=== PATIENT | female | born 1995 | race Caucasian/White ===

== ENCOUNTER 2017-07-31 06:46 | Day surgery (SDC) | payer BC ==
[~2017-07-31 06:46] MED LIST: Lactated Ringers 1,000 ML IV SCH
[2017-07-31] MEDS ORDERED: HYDROmorphone 2 MG/ML SDV IV PRN (07:26)
[2017-07-31] MEDS ORDERED: Albuterol 0.083% 2.5 MG/3 ML Neb Soln NEB PRN (07:26)
[2017-07-31] MEDS ORDERED: fentaNYL 100 MCG/2 ML SDV IVPUSH PRN (07:26)
[2017-07-31] MEDS ORDERED: Promethazine 25 MG/ML SDV IM PRN (07:26)
[2017-07-31] MEDS ORDERED: HYDROmorphone 2 MG/ML SDV IVPUSH PRN (07:26)
[2017-07-31] MEDS ORDERED: Ondansetron 4 MG/2 ML SDV IVPUSH PRN (07:26)
[2017-07-31] MEDS ORDERED: Naloxone 0.4 MG/ML SDV IVPUSH PRN (07:26)
[2017-07-31] MEDS ORDERED: Lactated Ringers 1,000 ML IV SCH (07:30)
[2017-07-31] MEDS ORDERED: Ondansetron 4 MG/2 ML SDV IVPUSH ONE (08:00)
[2017-07-31] MEDS ORDERED: Lidocaine 2% 100 MG/5 ML Syringe IVPUSH ONE (08:00)
[2017-07-31] MEDS ORDERED: fentaNYL 100 MCG/2 ML SDV IV ONE (08:00)
[2017-07-31] MEDS ORDERED: Midazolam 1 MG/ML 2 ML SDV IV ONE (08:00)
[2017-07-31] MEDS ORDERED: HYDROmorphone 2 MG/ML SDV IV ONE (08:00)
[2017-07-31] MEDS ORDERED: Succinylcholine/Normal Saline 100 MG/5 ML Syringe IV ONE (08:00)
[2017-07-31] MEDS ORDERED: Dexamethasone 4 MG/ML 5 ML MDV IVPUSH ONE (08:00)
[2017-07-31] MEDS ORDERED: Propofol 200 MG/20 ML SDV IV ONE (08:00)
[2017-07-31] MEDS ORDERED: Rocuronium 100 MG/10 ML MDV IV ONE (08:00)
--- NOTE | 2017-07-31 08:14 | PCM.HP ---
H&P History of Present Illness - General Date of Service: 07/31/17 Admit Problem/Dx: Admission Diagnosis/Problem Admission Diagnosis/Problem Tonsillitis Source of Information: Patient History Limitations: Reports: No Limitations - History of Present Illness Initial Comments - Free Text/Narative: Here for tonsillectomy for chronic tonsillitis - Related Data Allergies/Adverse Reactions: Allergies Allergy/AdvReac Type Severity Reaction Status Date / Time No Known Allergies Allergy Verified 03/08/14 11:42 Home Medications: Home Meds Norgestimate-Ethinyl Estradiol [[place]-Linyah 28 Tablet] 1 tab PO DAILY 07/31/17 [ History] Past Medical History - Past Health History Medical/Surgical History: Denies Medical/Surgical History HEENT History: Reports: None Cardiovascular History: Reports: None Respiratory History: Reports: None Gastrointestinal History: Reports: None Genitourinary History: Reports: None [employer] History: Reports: None Musculoskeletal History: Reports: None Neurological History: Reports: None Psychiatric History: Reports: None Endocrine/Metabolic History: Reports: None Hematologic History: Reports: None Immunologic History: Reports: None Oncologic (Cancer) History: Reports: None Dermatologic History: Reports: None - Past Surgical History Head Surgeries/Procedures: Reports: None HEENT Surgical History: Reports: None Cardiovascular Surgical History: Reports: None Respiratory Surgical History: Reports: None GI Surgical History: Reports: Appendectomy Female Surgical History: Reports: None Endocrine Surgical History: Reports: None Neurological Surgical History: Reports: Scoliosis, Other (See Below) Other Neurological Surgeries/Procedures: SPINAL SURGERY TO CORRECT SCOLIOSIS Musculoskeletal Surgical History: Reports: None Oncologic Surgical History: Reports: None Dermatological Surgical History: Reports: None Social & Family History - Tobacco Use Smoking Status *Q: Never Smoker - Caffeine Use Caffeine Use: Reports: None - Alcohol Use Days Per Week of Alcohol Use: 0 - Recreational Drug Use Recreational Drug Use: No Drug Use in Last 12 Months: No H&P Review of Systems - Review of Systems: Review Of Systems: ROS reveals no pertinent complaints other than HPI. Exam - Exam Exam: See Below - Vital Signs Vital Signs: Last Vital Signs Temp 97.3 F 07/31/17 07:10 Pulse 75 07/31/17 07:10 Resp 16 07/31/17 07:10 BP 123/72 07/31/17 07:10 Pulse Ox 100 07/31/17 07:10 Weight: 79.1 kg - Exam General: Alert, Oriented Lungs: Clear to Auscultation, Normal Respiratory Effort Cardiovascular: Regular Rate, Regular Rhythm - Patient Data Lab Results Last 24 hrs: Laboratory Results - last 24 hr 07/31/17 Range/Units 07:15 Urine HCG, Qual Negative (NEGATIVE) *Q Meaningful Use (ADM) - VTE *Q VTE Criteria *Q: - Stroke *Q Stroke Criteria *Q: - AMI *Q AMI Criteria *Q: Problem List Initiated/Reviewed/Updated: Yes Orders Last 24hrs: Active Orders 24 hr Category Date Time Status Patient Status [ADT] Routine ADT 07/31/17 06:45 Ordered Communication Order [RC] ASDIRECTED Care 07/31/17 07:26 Active Cooling Warming Measures [RC] ASDIRECTED Care 07/31/17 07:26 Active Notify Provider [RC] PRN Care 07/31/17 07:26 Active Oxygen Therapy [RC] ASDIRECTED Care 07/31/17 07:26 Active Patient to Empty Bladder [RC] ASDIRECTED Care 07/31/17 06:45 Active Verify Patient Consent Obtain [RC] ASDIRECTED Care 07/31/17 06:45 Active Vital Signs [RC] PER UNIT ROUTINE Care 07/31/17 07:26 Active Nothing Per Oral Diet [DIET] Diet 07/30/17 Dinner Ordered Albuterol [Proventil Neb Soln] Med 07/31/17 07:26 Active 2.5 mg NEB ONETIME PRN HYDROmorphone [Dilaudid] Med 07/31/17 07:26 Active 0.2 mg IVPUSH Q10M PRN HYDROmorphone [Dilaudid] Med 07/31/17 07:26 Active 0.5 mg IV Q10M PRN Lactated Ringers [Ringers, Lactated] 1,000 ml Med 07/31/17 06:45 Active IV ASDIRECTED Lactated Ringers [Ringers, Lactated] 1,000 ml Med 07/31/17 07:30 Active IV ASDIRECTED Naloxone [Narcan] Med 07/31/17 07:26 Active 0.2 mg IVPUSH Q1M PRN Ondansetron [Zofran] Med 07/31/17 07:26 Active 4 mg IVPUSH ONETIME PRN Promethazine [Phenergan] Med 07/31/17 07:26 Active 12.5 mg IM Q4H PRN fentaNYL [Sublimaze] Med 07/31/17 07:26 Active 50 mcg IVPUSH Q5M PRN Patient May [OM.PC] Click to Edit Oth 07/31/17 07:26 Ordered Peripheral IV Insertion Adult [OM.PC] Routine Oth 07/31/17 06:45 Ordered Medication Orders Albuterol (Proventil Neb Soln) 2.5 mg NEB ONETIME PRN PRN Reason: Wheezing Fentanyl (Sublimaze) 50 mcg IVPUSH Q5M PRN PRN Reason: Pain (severe 7-10) Hydromorphone HCl (Dilaudid) 0.2 mg IVPUSH Q10M PRN PRN Reason: Pain (moderate 4-6) Hydromorphone HCl (Dilaudid) 0.5 mg IV Q10M PRN PRN Reason: Pain (severe 7-10) Lactated Ringer's (Ringers, Lactated) 1,000 mls @ 125 mls/hr IV ASDIRECTED [facility] Last Admin: 07/31/17 07:31 Dose: 125 mls/hr Lactated Ringer's (Ringers, Lactated) 1,000 mls @ 0 mls/hr IV ASDIRECTED KIAN PRN Reason: KVO Naloxone HCl (Narcan) 0.2 mg IVPUSH Q1M PRN PRN Reason: Respiratory Depression Ondansetron HCl (Zofran) 4 mg IVPUSH ONETIME PRN PRN Reason: Nausea/Vomiting Promethazine HCl (Phenergan) 12.5 mg IM Q4H PRN PRN Reason: Nausea/Vomiting Assessment/Plan Comment:: Chronic Tonsillitis Ok to proceed with surgery
--- NOTE | 2017-07-31 08:34 | PCM.OPNOTE ---
- General Post-Op/Procedure Note Date of Surgery/Procedure: 07/31/17 Operative Procedure(s): Tonsillectomy Findings: Chronic Tonsillitis Pre Op Diagnosis: Chronic Tonsillitis Post-Op Diagnosis: Same Anesthesia Technique: General ET Tube Primary Surgeon: Rashel Arrieta Anesthesia Provider: Luis Alfaro Pathology: Tonsils EBL in mLs: 1 Condition: Good
[2017-07-31] MEDS ORDERED: Morphine 2 MG/ML Syringe IVPUSH PRN (08:36)
[2017-07-31] MEDS ORDERED: Acetaminophen/HYDROcodone 325-5 MG Tab PO PRN (08:36)
[2017-07-31 10:23] VITALS: BP 119/51
--- NOTE | 2017-07-31 12:32 | OR ---
DATE OF OPERATION: 07/31/2017 SURGEON: Rashel Arrieta MD PREOPERATIVE DIAGNOSIS: Chronic tonsillitis. POSTOPERATIVE DIAGNOSIS: Chronic tonsillitis. PROCEDURE: Tonsillectomy. ANESTHESIA: General. DESCRIPTION OF PROCEDURE: The patient was brought to the operating room, where general endotracheal anesthesia was administered. The oral gag retractor was inserted. Tonsils were both enlarged and cryptic without acute inflammation. The right tonsil was grasped and retracted towards the midline. Electrocautery was used to dissect along its muscular plane and removed without difficulty. Minimal oozing was controlled with cautery. The left tonsil was removed in a similar fashion without difficulty. Again, only minimal oozing occurred. The nasopharynx was inspected with a dental mirror and no visible adenoid tissue was present. Retractor was partially released and surgical sites observed for a minute and remained hemostatic, and retractor was then removed. The patient was extubated and returned to recovery in stable condition. ESTIMATED BLOOD LOSS: Less than 1 mL. /[id number] CALIN/LUCIANO
== END 2017-07-31 10:14 | disposition home or self-care (01) ==
LOC: FB.SDS 06:46
PROVIDERS: ATTEND Surgery
DX: J35.1 Hypertrophy of tonsils (principal); Z79.899 Other long term (current) drug therapy
CPT/HCPCS: 42826; 81025; 88304; A9270; J0330; J1100; J1170; J2250; J2405; J2704; J3010; J7120

== ENCOUNTER 2017-08-06 05:20 | Day surgery (SDC) | payer BC ==
--- NOTE | 2017-08-06 05:49 | EDM.PDOC ---
ED HPI GENERAL MEDICAL PROBLEM - General Stated Complaint: SORE THROAT Time Seen by Provider: 08/06/17 05:20 Source of Information: Reports: Patient History Limitations: Reports: No Limitations - History of Present Illness INITIAL COMMENTS - FREE TEXT/NARRATIVE: 21 y.o.w.f came to the ed 7 days (07/31/2017) after tonsillectomy due to spitting up blood intermittently. Pt was taking pain meds, using ICE Chips. Bleeding has not stopped, no N/V/D or dizziness. BP 107/71 pulse 101 temp 37.2 RR 17 Pulse ox 96% on RA Onset: Today Onset Date: 08/05/17 Onset Time: 18:00 Duration: Hour(s):, Intermittent Location: Reports: Face Quality: Reports: Ache, Burning, Other (s/p tonsilectomy bleed) Severity: Mild Improves with: Reports: Cold Therapy Worsens with: Reports: Movement Context: Reports: Other (s/p tonsilectmy) Associated Symptoms: Reports: No Other Symptoms - Related Data Allergies Allergy/AdvReac Type Severity Reaction Status Date / Time No Known Allergies Allergy Verified 08/06/17 06:58 Home Meds: Home Meds Norgestimate-Ethinyl Estradiol [[place]-Linyah 28 Tablet] 1 tab PO DAILY 07/31/17 [ History] Hydrocodone/Acetaminophen [Hydrocodon-Acetaminophen 5-325] 1 tab PO Q4H PRN [History] Past Medical History - Past Health History Medical/Surgical History: Denies Medical/Surgical History HEENT History: Reports: None Cardiovascular History: Reports: None Respiratory History: Reports: None Gastrointestinal History: Reports: None Genitourinary History: Reports: None INFORMATION ASSURANCE History: Reports: None Musculoskeletal History: Reports: None Neurological History: Reports: None Psychiatric History: Reports: None Endocrine/Metabolic History: Reports: None Hematologic History: Reports: None Immunologic History: Reports: None Oncologic (Cancer) History: Reports: None Dermatologic History: Reports: None - Past Surgical History Head Surgeries/Procedures: Reports: None HEENT Surgical History: Reports: None Cardiovascular Surgical History: Reports: None Respiratory Surgical History: Reports: None GI Surgical History: Reports: Appendectomy Female Surgical History: Reports: None Endocrine Surgical History: Reports: None Neurological Surgical History: Reports: Scoliosis, Other (See Below) Other Neurological Surgeries/Procedures: SPINAL SURGERY TO CORRECT SCOLIOSIS Musculoskeletal Surgical History: Reports: None Oncologic Surgical History: Reports: None Dermatological Surgical History: Reports: None Social & Family History - Tobacco Use Smoking Status *Q: Never Smoker - Caffeine Use Caffeine Use: Reports: None - Alcohol Use Days Per Week of Alcohol Use: 0 - Recreational Drug Use Recreational Drug Use: No Drug Use in Last 12 Months: No ED ROS ENT - Review of Systems Review Of Systems: See Below Constitutional: Reports: No Symptoms HEENT: Reports: Throat Pain, Other (bleeding from the tonsilectomy wound) Respiratory: Reports: No Symptoms Cardiovascular: Reports: No Symptoms Endocrine: Reports: No Symptoms GI/Abdominal: Reports: No Symptoms : Reports: No Symptoms Musculoskeletal: Reports: No Symptoms Skin: Reports: No Symptoms Neurological: Reports: No Symptoms Psychiatric: Reports: No Symptoms Hematologic/Lymphatic: Reports: No Symptoms Immunologic: Reports: No Symptoms ED EXAM, ENT - Physical Exam Exam: See Below Exam Limited By: No Limitations General Appearance: Alert, WD/WN, Mild Distress Eye Exam: Bilateral Eye: Normal Inspection Ears: Normal External Exam Nose: Normal Inspection, Normal Mucousa Mouth/Throat: Other (surgical wound bleed S/P tonsilectomy 07/21/2017) Head: Atraumatic, Normocephalic Neck: Normal Inspection, Supple, Non-Tender Respiratory/Chest: No Respiratory Distress, Lungs Clear, Normal Breath Sounds Cardiovascular: Normal Peripheral Pulses, Regular Rate, Rhythm, No Edema GI/Abdominal: Normal Bowel Sounds, Soft, Non-Tender, No Organomegaly (Female) Exam: Deferred Rectal (Female) Exam: Deferred Back: Normal Inspection, Full Range of Motion Extremities: Normal Inspection, Normal Range of Motion, Non-Tender, No Pedal Edema Neurological: Alert, Oriented, CN II-XII Intact, Normal Cognition, Normal Gait Psychiatric: Normal Affect, Normal Mood Skin: Warm, Dry, Intact, Normal Color, No Rash Lymphatic: No Adenopathy Course - Vital Signs Text/Narrative:: 21 y.o.w.f came to the ed 7 days (08/01/2017)after tonsillectomy due to spitting up blood intermittently. Pt was taking pain meds, using ICE Chips. Bleeding has not stopped, no N/V/D or dizziness. BP 107/71 pulse 101 temp 37.2 RR 17 Pulse ox 96% on RA PE: HEENT: Blood clot formed at the surgical wound (left) S/P tonsillectomy with intermittent venous bleed Labs: WBC 11.5 HGB 11.7 HCT 44.3 Na 133 K 3.8 GFR > 60 Impression: S/P tonsillectomy surgical wound bleed. 5.46 am Consultation: Dr. Arrieta, Surgeon: Give pt ice chips and keep here here in the ED for a couple of hours, call back 7.13 am: Dr. Arrieta called back: Is planning to take the Pt back to the OR at 8 am , nurse should call the OR team.8 am 8 AM: Dr. Arrieta, Surgeon, took over the care Last Recorded V/S: Last Vital Signs Temp 36.5 C 08/06/17 10:30 Pulse 77 08/06/17 10:30 Resp 18 08/06/17 10:30 BP 119/64 08/06/17 10:30 Pulse Ox 96 08/06/17 10:30 - Orders/Labs/Meds Orders: Active Orders 24 hr Category Date Time Status Ready for Discharge [RC] PER UNIT ROUTINE Care 08/06/17 08:52 Active Sodium Chloride 0.9% [Normal Saline] 1,000 ml Med 08/06/17 09:56 Active IV ASDIRECTED Medication Orders Sodium Chloride (Normal Saline) 1,000 mls @ 500 mls/hr IV ASDIRECTED KIAN Stop: 08/06/17 11:55 Last Admin: 08/06/17 10:06 Dose: Labs: Laboratory Tests 08/06/17 08/06/17 08/06/17 Range/Units 06:15 06:15 06:15 WBC 11.5 (4.5-12.0) X10-3/uL RBC 5.27 H (3.23-5.20) x10(6)uL Hgb 15.1 (11.5-15.5) g/dL Hct 44.0 (30.0-51.3) % MCV 83.5 (80-96) fL MCH 28.7 (27.7-33.6) pg MCHC 34.4 (32.2-35.4) g/dL RDW 12.6 (11.5-15.5) % Plt Count 293 (125-369) X10(3)uL MPV 8.4 (7.4-10.4) fL Neut % (Auto) 83.6 H (46-82) % Lymph % (Auto) 9.5 L (13-37) % Divide % (Auto) 6.2 (4-12) % Eos % (Auto) 1 (1.0-5.0) % Baso % (Auto) 0 (0-2) % Neut # (Auto) 9.6 H (1.6-8.3) # Lymph # (Auto) 1.1 (0.6-5.0) # Divide # (Auto) 0.7 (0.0-1.3) # Eos # (Auto) 0.1 (0.0-0.8) # Baso # (Auto) 0.0 (0.0-0.2) # PT 12.3 H (8.7-11.1) INR 1.22 H (0.89-1.13) Sodium 133 L (135-145) mmol/L Potassium 3.8 (3.5-5.3) mmol/L Chloride 96 L (100-110) mmol/L Carbon Dioxide 24 (21-32) mmol/L BUN 14 (7-18) mg/dL Creatinine 0.7 (0.55-1.02) mg/dL Est Cr Clr Drug Dosing 121.01 mL/min Estimated GFR (MDRD) > 60 (>60) BUN/Creatinine Ratio 20.0 (9-20) Glucose 116 (80-116) mg/dL Calcium 9.4 (8.2-10.1) mg/dL HCG, Quant (<5) mIU/mL 08/06/ Range/Units 06:15 WBC (4.5-12.0) X10-3/uL RBC (3.23-5.20) x10(6)uL Hgb (11.5-15.5) g/dL Hct (30.0-51.3) % MCV (80-96) fL MCH (27.7-33.6) pg MCHC (32.2-35.4) g/dL RDW (11.5-15.5) % Plt Count (125-369) X10(3)uL MPV (7.4-10.4) fL Neut % (Auto) (46-82) % Lymph % (Auto) (13-37) % Divide % (Auto) (4-12) % Eos % (Auto) (1.0-5.0) % Baso % (Auto) (0-2) % Neut # (Auto) (1.6-8.3) # Lymph # (Auto) (0.6-5.0) # Divide # (Auto) (0.0-1.3) # Eos # (Auto) (0.0-0.8) # Baso # (Auto) (0.0-0.2) # PT (8.7-11.1) INR (0.89-1.13) Sodium (135-145) mmol/L Potassium (3.5-5.3) mmol/L Chloride (100-110) mmol/L Carbon Dioxide (21-32) mmol/L BUN (7-18) mg/dL Creatinine (0.55-1.02) mg/dL Est Cr Clr Drug Dosing mL/min Estimated GFR (MDRD) (>60) BUN/Creatinine Ratio (9-20) Glucose (80-116) mg/dL Calcium (8.2-10.1) mg/dL HCG, Quant < 1 L (<5) mIU/mL Meds: Medications Generic Name Dose Route Start Last Admin Trade Name Freq PRN Reason Stop Dose Admin Sodium Chloride 1,000 mls @ 500 mls/hr 08/06/17 09:56 08/06/17 10:06 Normal Saline IV 08/06/17 11:55 Not Given ASDIRECTED KIAN Discontinued Medications Generic Name Dose Route Start Last Admin Trade Name Freq PRN Reason Stop Dose Admin Sodium Chloride 1,000 mls @ 999 mls/hr 08/06/17 06:27 08/06/17 06:41 Normal Saline IV 08/06/17 07:27 125 mls/hr .BOLUS ONE Infusion Sodium Chloride 1,000 mls @ 125 mls/hr 08/06/17 06:45 Normal Saline IV ASDIRECTED KIAN Departure - Departure Time of Disposition: 08:00 Disposition: Still A Patient 30 Condition: Fair Clinical Impression: Hemorrhage following tonsillectomy - Discharge Information
[2017-08-06] MEDS ORDERED: Sodium Chloride 0.9% 1,000 ML IV ONE (06:27)
[2017-08-06] MEDS ORDERED: Sodium Chloride 0.9% 1,000 ML IV SCH ×2 (06:45→09:56)
[2017-08-06] MEDS ORDERED: Dexamethasone 4 MG/ML 5 ML MDV IVPUSH ONE (08:15)
[2017-08-06] MEDS ORDERED: Ondansetron 4 MG/2 ML SDV IVPUSH ONE (08:15)
[2017-08-06] MEDS ORDERED: Rocuronium 100 MG/10 ML MDV IV ONE (08:15)
[2017-08-06] MEDS ORDERED: Propofol 200 MG/20 ML SDV IV ONE (08:15)
[2017-08-06] MEDS ORDERED: Midazolam 1 MG/ML 2 ML SDV IV ONE (08:15)
[2017-08-06] MEDS ORDERED: HYDROmorphone 2 MG/ML SDV IV ONE (08:15)
[2017-08-06] MEDS ORDERED: Lactated Ringers 1,000 ML IV ONE (08:15)
--- NOTE | 2017-08-06 08:17 | PCM.HPR ---
H & P Addendum review - H & P Addendum Review Date of Original H & P: 07/31/17 Date Reviewed: 08/06/17 Time Reviewed: 07:55 Patient was Examined: Changes (Began bleeding early this am, clot present. Will take back to OR to look and cauterize and/or suture the area.)
--- NOTE | 2017-08-06 08:50 | PCM.OPNOTE ---
- General Post-Op/Procedure Note Date of Surgery/Procedure: 08/06/17 Operative Procedure(s): Cauterize tonsil bed Findings: Left tonsil bed bleed Pre Op Diagnosis: Post op Tonsilectomy bleeding Post-Op Diagnosis: Same Anesthesia Technique: General ET Tube Primary Surgeon: Rashel Arrieta EBL in mLs: 0 Complications: None Condition: Good Free Text/Narrative:: Intake & Output 08/05/17 08/06/17 08/06/17 22:59 06:59 14:59 Output Total 1 Balance -1
--- NOTE | 2017-08-06 10:25 | OR ---
DATE OF OPERATION: 08/06/2017 SURGEON: Rashel Arrieta MD PREOPERATIVE DIAGNOSIS: Postoperative tonsillectomy bleed. POSTOPERATIVE DIAGNOSIS: Postoperative tonsillectomy bleed. PROCEDURE: Cauterization, left tonsil bed. ANESTHESIA: General. HISTORY: This young female had her tonsils removed 6 days ago and began developing some bleeding this morning. She was seen in the emergency room and clot was present. She had a couple of small episodes of further bleeding in the emergency room. So, I recommended that she be brought to the operating room for inspection and cauterization and/or suturing of the bleed. The patient and mother were agreeable and consent obtained. DESCRIPTION OF PROCEDURE: The patient was brought to the operating room, where general endotracheal anesthesia was administered. The adherent clot was present to the left tonsillar bed that was removed with suction. There was no active bleeding. There was some adherent clot in the mid tonsil bed and when I further removed this, there was very minimal fresh blood present, not enough to suction even. I did cauterize this area. An orogastric tube was placed in the stomach to remove some dark old blood. Surgical site was observed for 5 minutes and no further bleeding occurred. Retractor was removed and the patient extubated and returned to recovery in stable condition. ESTIMATED BLOOD LOSS: None. /[id number] CALIN/LUCIANO
[2017-08-06 11:47] VITALS: BP 119/68
== END 2017-08-06 11:40 | disposition home or self-care (01) ==
LOC: FB.ED 05:20 → FB.SDS 07:31 → FB.MS 09:37 → FB.SDS 11:40
PROVIDERS: ATTEND Surgery
DX: J95.830 Postprocedural hemorrhage of a respiratory system organ or structure following a respiratory system procedure (principal); Z79.899 Other long term (current) drug therapy
CPT/HCPCS: 36415; 42960; 80048; 84702; 85025; 85610; 96360; 96361; 99284; J7040; J0131; J1100; J1170; J2250; J2405; J2704; J7120